=== PATIENT | female | born 1935 | race American Indian/Alaskan Native ===

== ENCOUNTER 2016-10-02 06:24 | Day surgery (SDC) | payer MEDICARE ==
[2016-09-24 09:22] VITALS: BMI 32.9
[2016-10-02] MEDS ORDERED: Propofol 10 mg/ml Inj (20 ML) ONE (08:51)
[2016-10-02] MEDS ORDERED: Sodium Chloride 0.9% 1,000 ML IV SCH (09:15)
[2016-10-02 09:52] VITALS: BP 143/63; PULSE 64; RESP 18; TEMP 97.7; O2SAT 97
== END 2016-10-02 10:48 | disposition home or self-care (01) ==
LOC: ENDO 06:24
PROVIDERS: ATTEND Specialist
DX: K22.5 Diverticulum of esophagus, acquired (principal); K44.9 Diaphragmatic hernia without obstruction or gangrene; K29.50 Unspecified chronic gastritis without bleeding; D50.9 Iron deficiency anemia, unspecified; E11.9 Type 2 diabetes mellitus without complications; I10 Essential (primary) hypertension; I25.10 Atherosclerotic heart disease of native coronary artery without angina pectoris
CPT/HCPCS: 43239; 82948; 88305; 88342; J2001; J2704; J3010; J7040 ×2

== ENCOUNTER 2016-10-29 07:28 | Day surgery (SDC) | payer MEDICARE ==
[2016-09-24 09:22] VITALS: BMI 32.9
[2016-10-29] MEDS ORDERED: Lidocaine 1% Inj (20ml) ONE (09:14)
[2016-10-29] MEDS ORDERED: Bupivacaine 0.5% Inj(30mL) ONE (09:14)
[2016-10-29] MEDS ORDERED: Propofol 10 mg/ml Inj (20 ML) ONE (10:04)
[2016-10-29] MEDS ORDERED: Lidocaine 2% Inj (20ml) ONE (10:05)
[2016-10-29] MEDS ORDERED: Phenylephrine 10 mg/ml Inj ONE (10:23)
[2016-10-29] MEDS ORDERED: ePHEDrine 50 mg/ml Inj ONE (10:26)
[2016-10-29] MEDS ORDERED: Oxycodone/Acetaminophen 5/325 mg Tab PO PRN (12:39)
--- NOTE | 2016-10-29 12:39 | PCM.SURG1 ---
Surgeon's Initial Post Op Note - Surgeon's Notes Surgeon: Dr. Lugo Therapeutic Recreation Leader: Dr. Ng PGY2, Dr. Calhoun PGY1 Type of Anesthesia: General LMA, Local Pre-Operative Diagnosis: CKD Diabetes Mellitus Operative Findings: see dictation Post-Operative Diagnosis: same Operation Performed: Left AV fistula formation Specimen/Specimens Removed: none Estimated Blood Loss: EBL {In ML}: 20 Post-Op Condition: Good Date of Surgery/Procedure: 10/29/16 Time of Surgery/Procedure: 10:45
[2016-10-29 14:03] VITALS: RESP 18; TEMP 98.4
[2016-10-29 14:34] VITALS: BP 127/58; PULSE 58; O2SAT 99
--- NOTE | 2016-11-20 23:15 | OP ---
PROCEDURE DATE: 10/29/2016 PREOPERATIVE DIAGNOSIS: End-stage renal disease, impending dialysis. POSTOPERATIVE DIAGNOSES: End-stage renal disease, impending dialysis plus atherosclerotic vascular disease. PROCEDURE: Exploration of the left radial artery and cephalic vein at the wrist level, left brachiocephalic Mercedes-type fistula. SURGEON: Dr. Lugo. TYPE OF ANESTHESIA: General. DESCRIPTION OF PROCEDURE: The patient is brought to the OR and placed supine on the OR table. After adequate general anesthesia has been accomplished, the entire left arm and forearm were prepped and draped out with the sterile field. Incision was made at the wrist, mid point between the cephalic vein and the radial artery. The radial artery and the cephalic vein were dissected out and found to be of good caliber allowing a 3 mm probe to be passed cephalad. The radial artery was explored. It was heavily calcified and did not have a pulse. At this point, we elected to abandon the fistula as this level. A transverse incision was made one fingerbreadth below the antecubital crease. The incision was extended to subcutaneous tissue. The cephalic vein was identified and exposed, down to its confluence with the basilic vein into the antecubital vein. Both the antecubital vein and the basilic and cephalic veins were dissected out and looped out using vessel loop. The brachial artery was also dissected out. It was found to be of good caliber and was free of atherosclerosis. Ufop-ay-raps anastomosis of the cephalic vein was made to the brachial artery using 5-0 Prolene continuous suture. Upon completion of the anastomosis, all occlusive tape was removed. A palpable thrill was noted in the fistula. At this point, the antecubital vein distal to the cephalic anastomosis was ligated and so was the basilic vein, just beyond the antecubital vein bifurcation, making this in essence an end cephalic to side brachial artery AV fistula. Good hemostasis was assured. Bovie incision was closed in 2 layers using 2-0 Monocryl, continuous suture for the subcutaneous tissue, 4-0 Monocryl subcuticular suture for skin. Patient tolerated procedure well. Upon awakening from the anesthesia, she was noted to have a warm left hand and an audible bruit. Sterile dressing was applied. She was taken to the recovery room in stable condition. Rasheeda Lugo MD [facility] # [id number]
== END 2016-10-29 15:00 | disposition home or self-care (01) ==
LOC: SDS 07:28
PROVIDERS: ATTEND Surgery Vascular Surgery
DX: N18.6 End stage renal disease (principal)
CPT/HCPCS: 35761; 36415; 82948; 84132; J0694; J1644; J2370; J2704; J3010; J7120

== ENCOUNTER 2018-02-22 14:09 | Emergency (ER) | payer MEDICARE ==
[2018-02-22 14:10] VITALS: BMI 32.9
[2018-02-22 14:18] VITALS: RESP 18; TEMP 97.9
--- NOTE | 2018-02-22 14:37 | ED PDOC ---
Arrival/HPI - General Chief Complaint: Altered Mental Status Historian: Patient, Family, EMS - History of Present Illness Narrative History of Present Illness (Text): 02/22/18 14:28 83 y/o female, pmh including htn/hld/dm/ckd with preparing for dialysis with LUE shunt for future dialysis use, pmd DR. Pantoja and park superintendent Dr. Cani, nkda, biba for hypoglycemia episode at [facility] about 1 hour ago. Pt. stated that she woke up at 7am this morning in a hurry, didn't check her glucose level and she randomly gave her self insulin injection without sliding scale, went to the [facility] and noted to be found sweating and confused, gave juice and slightly bet ter, ambulance arrived and noted her glucose around 40s which d50 administered, responded and returned to baseline immediately, here in the ER chatting and smiling, no focal neurological deficits. Past Medical History - Provider Review Nursing Documentation Reviewed: Yes - Cardiac Hx Heart Transplant: Yes - Neurological Hx Paralysis: No - Renal Hx Dialysis: Yes - Endocrine/Metabolic Hx Diabetes Mellitus Type 2: Yes - Hematological/Oncological Hx Blood Transfusions: No - Musculoskeletal/Rheumatological Hx Musculoskeletal Disorders: No - Psychiatric Hx Emotional Abuse: No Hx Physical Abuse: No Hx Substance Use: No - Surgical History Other/Comment: Cardiac stent - Anesthesia Hx Anesthesia Reactions: No Hx Malignant Hyperthermia: No - Suicidal Assessment Feels Threatened In Home Enviroment: No Family/Social History - Physician Review Nursing Documentation Reviewed: Yes Family/Social History: Unknown Family HX Smoking Status: Never Smoked Hx Alcohol Use: Yes (MANY YRS AGO) Hx Substance Use: No Allergies/Home Meds Allergies/Adverse Reactions: Allergies No Known Allergies Allergy (Verified 05/08/12 12:13) Home Medications: Home Meds Medication Instructions Recorded Confirmed Carvedilol [Coreg] 25 mg PO BID 03/06/15 10/29/16 Febuxostat [Uloric] 40 mg PO DAILY 03/06/15 10/29/16 Linaclotide [Linzess] 145 mcg PO DAILY 03/06/15 10/29/16 Losartan [Cozaar] 100 mg PO DAILY 03/06/15 10/29/16 Paricalcitol [Zemplar] 1 mcg PO DAILY 03/06/15 10/29/16 amLODIPine [Norvasc] 5 mg PO DAILY 03/06/15 10/29/16 Aspirin [Ecotrin] 325 mg PO DAILY 09/24/16 10/24/16 Ferrous Sulfate 325 mg PO DAILY 09/24/16 10/29/16 Folic Acid 1 mg PO MWF 09/24/16 10/29/16 Furosemide [Lasix] 40 mg PO DAILY 09/24/16 10/29/16 Magnesium Oxide [Magnesium] 400 mg PO DAILY 09/24/16 10/29/16 Pantoprazole [Protonix] 40 mg PO DAILY 09/24/16 10/29/16 Simvastatin [Zocor] 20 mg PO DAILY 09/24/16 10/29/16 Insulin Detemir [Levemir] 35 unit SC BID 10/24/16 10/29/16 Review of Systems - Review of Systems Constitutional: absent: Fatigue, Fevers Eyes: absent: Vision Changes ENT: absent: Hearing Changes Respiratory: absent: SOB, Cough Cardiovascular: absent: Chest Pain Gastrointestinal: absent: Abdominal Pain, Nausea, Vomiting Skin: absent: Rash, Pruritis, Skin Lesions Neurological: absent: Headache, Dizziness Psychiatric: absent: Anxiety, Depression Physical Exam Vital Signs Reviewed: Yes Vital Signs Temp Pulse Resp BP Pulse Ox 02/22/18 14:17 97.9 F 71 18 129/69 97 Temperature: Afebrile Blood Pressure: Normal Pulse: Regular Respiratory Rate: Normal Appearance: Positive for: Well-Appearing, Non-Toxic, Comfortable Pain Distress: None Mental Status: Positive for: Alert and Oriented X 3 Finger Stick Blood Glucose: 95 - Systems Exam Head: Present: Atraumatic, Normocephalic Pupils: Present: PERRL Extroacular Muscles: Present: EOMI Conjunctiva: Present: Normal Mouth: Present: Moist Mucous Membranes Neck: Present: Normal Range of Motion, Trachea Midline. No: Meningeal Signs, MIDLINE TENDERNESS, Paraspinal Tenderness, Lymphadenopathy Respiratory/Chest: Present: Clear to Auscultation, Good Air Exchange. No: Respiratory Distress, Accessory Muscle Use Cardiovascular: Present: Regular Rate and Rhythm, Normal S1, S2. No: Murmurs Abdomen: No: Tenderness, Distention, Peritoneal Signs, Rebound, Guarding Back: Present: Normal Inspection Upper Extremity: Present: Normal Inspection. No: Cyanosis, Edema Lower Extremity: Present: Normal Inspection. No: Edema Neurological: Present: GCS=15, CN II-XII Intact, Speech Normal, Motor Func Grossly Intact, Gait Normal, Memory Normal, Other (normal finger to nose test, normal heel to ya test, NIHSS is zero, no focal neurological deficits. ) Skin: Present: Warm, Dry, Normal Color. No: Rashes Psychiatric: Present: Alert, Oriented x 3, Normal Insight, Normal Concentration Medical Decision Making ED Course and Treatment: 02/22/18 14:30 -Labs -FS 95, will feed her -Observe and reassess 02/22/18 17:08 -EKG: SR @ 68 BPM with PAC, prolong QT, no ST elevation or depression, no T wave inversion, asymptomatic. -Labs are non-significant except BUN 56 from 60 and creatine 4.4 (normal potassium level) from 4.1 compared to 2017, seeing park superintendent and stated that she is planned for dialysis eventually. -Pt. is eating and drinking well, half life for levemir is 5-7 hours which she is on her 10 hours now, asymptomatic, FS 165 -No Urinary symptoms, non fatigue, UA show no obvious signs of UTI. -Pt. is educated about how to use the insulin properly, advised to follow up with her own pmd within 2 days. -Discharge home with education on follow up with your own pmd and park superintendent within 2 days, return to the ER for any new or worsening signs or symptoms. - EKG Interpretation EKG Interpretation (Text): 02/22/18 14:30 -EKG: SR @ 68 BPM with PAC, prolong QT, no ST elevation or depression, no T wave inversion. Interpreted by ED Physician: Yes Type: 12 lead EKG Comparison: Com.w/previous EKG - PA / FLOAT NURSE / Resident Statement MD/DO has reviewed & agrees with the documentation as recorded. Disposition/Present on Arrival - Present on Arrival Any Indicators Present on Arrival: No History of DVT/PE: No History of Uncontrolled Diabetes: No Urinary Catheter: No History of Decub. Ulcer: No History Surgical Site Infection Following: None - Disposition Have Diagnosis and Disposition been Completed?: Yes Diagnosis: CKD (chronic kidney disease), Hypoglycemia Disposition: HOME/ ROUTINE Disposition Time: 17:08 Patient Plan: Discharge Patient Problems: Current Active Problems Problem Status Onset CKD (chronic kidney disease) Acute Hypoglycemia Acute Condition: IMPROVED Additional Instructions: Discharge home with education on follow up with your own pmd and park superintendent within 2 days, return to the ER for any new or worsening signs or symptoms. Referrals: Robert Pantoja MD [Primary Care Provider] - Follow up with primary Katrina Cain MD [Staff Provider] - Follow up with primary Forms: [id number] (Mongolian), WORK NOTE
[2018-02-22 14:57] LABS: BASO # 0.02 K/mm3 (0.0-2.0); BASO % 0.3 % (0.0-3.0); EOS # 0.2 (0.0-0.7); EOS % 2.6 % (1.5-5.0); GRAN # 4.86 (1.4-6.5); GRAN % 66.5 % (50.0-68.0); HEMOGLOBIN 10.1 g/dL (12.0-16.0); LYMPH # 1.9 (1.2-3.4); LYMPH % 26.1 % (22.0-35.0); MEAN CELL VOLUME 92.8 fl (80.0-105.0); MEAN CORPUSCULAR HEMOGLOBIN 29.3 pg (25.0-35.0); MEAN CORPUSCULAR HGB CONC 31.6 g/dl (31.0-37.0); MEAN PLATELET VOLUME 10.7 fl (7.0-11.0); MONO # 0.3 (0.1-0.6); MONO % 4.5 % (1.0-6.0); RBC 3.45 10^6/uL (3.5-6.1); RED CELL DISTRIBUTION WIDTH 14.5 % (11.5-14.5); WHITE BLOOD COUNT 7.3 10^3/uL (4.5-11.0)
[2018-02-22 15:08] LABS: ALBUMIN 4.3 g/dL (3.0-4.8)
[2018-02-22 16:50] LABS: PH,URINE 6.5 (4.7-8.0); URINE BILIRUBIN NEGATIVE (NEGATIVE); URINE BLOOD TRACE-INTACT (NEGATIVE); URINE GLUCOSE (UA) NEGATIVE (NEGATIVE); URINE LEUKOCYTE ESTERASE NEGATIVE Leu/uL (NEGATIVE); URINE PROTEIN 30 mg/dL (<30 mg/dL); URINE UROBILINOGEN 0.2 E.U./dL (<1 E.U./dL)
[2018-02-22 16:55] LABS: URINE APPEARANCE CLEAR (CLEAR); URINE COLOR YELLOW (YELLOW)
[2018-02-22 17:05] LABS: URINE BACTERIA MOD (NEG)
[2018-02-22 17:24] VITALS: BP 122/80; PULSE 70; O2SAT 99
--- NOTE | 2018-02-22 18:01 | CARD ---
APPROVED REPORT Date of service: 02/22/2018 EKG Measurement Heart [id number] <Conclusion> Sinus rhythm with premature atrial complexes Prolonged QT Abnormal ECG
== END 2018-02-22 18:00 | disposition home or self-care (01) ==
LOC: ED 14:09
DX: E11.649 Type 2 diabetes mellitus with hypoglycemia without coma (principal); E11.22 Type 2 diabetes mellitus with diabetic chronic kidney disease; I12.9 Hypertensive chronic kidney disease with stage 1 through stage 4 chronic kidney disease, or unspecified chronic kidney disease; N18.9 Chronic kidney disease, unspecified; Z94.1 Heart transplant status; Z79.4 Long term (current) use of insulin

== ENCOUNTER 2018-05-07 06:05 | Day surgery (SDC) | payer MEDICARE | END 2018-05-08 17:59 | disposition home or self-care (01) | LOC: CATH 06:05 → 2RSO 09:36 | DX: I25.10 Atherosclerotic heart disease of native coronary artery without angina pectoris (principal); I13.2 Hypertensive heart and chronic kidney disease with heart failure and with stage 5 chronic kidney disease, or end stage renal disease; N18.6 End stage renal disease; I50.30 Unspecified diastolic (congestive) heart failure; R94.39 Abnormal result of other cardiovascular function study; E78.5 Hyperlipidemia, unspecified; E11.22 Type 2 diabetes mellitus with diabetic chronic kidney disease; D72.819 Decreased white blood cell count, unspecified; D50.9 Iron deficiency anemia, unspecified; E53.8 Deficiency of other specified B group vitamins; I27.20 Pulmonary hypertension, unspecified; I07.1 Rheumatic tricuspid insufficiency; I87.8 Other specified disorders of veins; M10.9 Gout, unspecified; Z79.4 Long term (current) use of insulin; Z95.5 Presence of coronary angioplasty implant and graft; Z99.2 Dependence on renal dialysis ==

== ENCOUNTER 2018-06-04 07:40 | Outpatient (CLI) | payer MEDICARE | END 2018-06-04 07:41 | disposition home or self-care (01) | LOC: RAD 07:40 | DX: R10.30 Lower abdominal pain, unspecified (principal); R10.2 Pelvic and perineal pain ==

== ENCOUNTER 2018-06-09 07:22 | Outpatient (CLI) | payer MEDICARE | END 2018-06-09 07:23 | disposition home or self-care (01) | LOC: RAD 07:22 ==